=== PATIENT | female | born 1960 ===

== ENCOUNTER 2019-05-10 11:18 | Outpatient (CLI) | payer OTHER | END 2019-05-10 12:00 | disposition home or self-care (01) | LOC: WOUND MED 11:18 | DX: E10.622 Type 1 diabetes mellitus with other skin ulcer (principal); N61.1 Abscess of the breast and nipple | CPT/HCPCS: 11042; A4554; A4930; A6216; A6219; G0463 ==

== ENCOUNTER 2019-05-13 08:53 | Outpatient (CLI) | payer OTHER | END 2019-05-13 09:00 | disposition home or self-care (01) | LOC: MAMO-SONO 08:53 | DX: N63.10 Unspecified lump in the right breast, unspecified quadrant (principal); N63.20 Unspecified lump in the left breast, unspecified quadrant; Z12.31 Encounter for screening mammogram for malignant neoplasm of breast; Z87.898 Personal history of other specified conditions ==

== ENCOUNTER 2019-05-17 08:59 | Outpatient (CLI) | payer OTHER | END 2019-05-17 09:30 | disposition home or self-care (01) | LOC: WOUND MED 08:59 | DX: E10.622 Type 1 diabetes mellitus with other skin ulcer (principal); N61.1 Abscess of the breast and nipple | CPT/HCPCS: 11042; A4554; A4930; A6216; A6219 ==

== ENCOUNTER 2019-05-27 07:27 | Outpatient (CLI) | payer OTHER | END 2019-05-27 08:30 | disposition home or self-care (01) | LOC: WOUND MED 07:27 | DX: E10.622 Type 1 diabetes mellitus with other skin ulcer (principal); N61.1 Abscess of the breast and nipple | CPT/HCPCS: 11042; A4554; A4930; A6216; A6219 ==

== ENCOUNTER 2019-05-30 07:36 | Outpatient (CLI) | payer OTHER | END 2019-05-30 08:30 | disposition home or self-care (01) | LOC: WOUND MED 07:36 | DX: E10.622 Type 1 diabetes mellitus with other skin ulcer (principal); N61.1 Abscess of the breast and nipple | CPT/HCPCS: 97602; A4554; A4930; A6216; A6219 ==

== ENCOUNTER 2019-06-06 08:53 | Outpatient (CLI) | payer OTHER | END 2019-06-06 09:00 | disposition home or self-care (01) | LOC: WOUND MED 08:53 | DX: E10.622 Type 1 diabetes mellitus with other skin ulcer (principal); N61.1 Abscess of the breast and nipple | CPT/HCPCS: 11042; 11045; A4554; A4930; A6216; A6219 ==

== ENCOUNTER 2019-06-06 11:14 | Outpatient (CLI) | payer OTHER | END 2019-06-06 11:19 | disposition home or self-care (01) | LOC: SONOGRAMA 11:14 | DX: N63.10 Unspecified lump in the right breast, unspecified quadrant (principal); N63.20 Unspecified lump in the left breast, unspecified quadrant ==

== ENCOUNTER 2019-06-10 08:33 | Outpatient (CLI) | payer OTHER | END 2019-06-10 10:10 | disposition home or self-care (01) | LOC: WOUND MED 08:33 | DX: E10.622 Type 1 diabetes mellitus with other skin ulcer (principal); N61.1 Abscess of the breast and nipple | CPT/HCPCS: 97602; A4554; A4930; A6212; A6216; A6219 ==

== ENCOUNTER 2019-06-13 07:08 | Outpatient (CLI) | payer OTHER | END 2019-06-13 12:40 | disposition home or self-care (01) | LOC: WOUND MED 07:08 | DX: E10.622 Type 1 diabetes mellitus with other skin ulcer (principal); N61.1 Abscess of the breast and nipple | CPT/HCPCS: 11042; 11045; A4554; A4930; A6216; A6219 ==

== ENCOUNTER 2019-06-17 07:32 | Outpatient (CLI) | payer OTHER | END 2019-06-17 09:00 | disposition home or self-care (01) | LOC: WOUND MED 07:32 | DX: E10.622 Type 1 diabetes mellitus with other skin ulcer (principal); N61.1 Abscess of the breast and nipple | CPT/HCPCS: 97602; A4554; A4930; A6212; A6216; A6219 ==

== ENCOUNTER 2019-06-20 10:36 | Outpatient (CLI) | payer OTHER | END 2019-06-20 11:30 | disposition home or self-care (01) | LOC: WOUND MED 10:36 | DX: E10.622 Type 1 diabetes mellitus with other skin ulcer (principal); N61.1 Abscess of the breast and nipple | CPT/HCPCS: 11042; 11045; A4554; A4930; A6216; A6219 ==

== ENCOUNTER 2019-06-24 07:17 | Outpatient (CLI) | payer OTHER | END 2019-06-24 08:00 | disposition home or self-care (01) | LOC: WOUND MED 07:17 | DX: E10.622 Type 1 diabetes mellitus with other skin ulcer (principal); N61.1 Abscess of the breast and nipple | CPT/HCPCS: 97602; A4554; A4930; A6212; A6216; A6219 ==

== ENCOUNTER 2019-06-27 08:30 | Outpatient (CLI) | payer OTHER | END 2019-06-27 09:00 | disposition home or self-care (01) | LOC: WOUND MED 08:30 | DX: E10.622 Type 1 diabetes mellitus with other skin ulcer (principal); N61.1 Abscess of the breast and nipple | CPT/HCPCS: 11042; 11045 ×2; A4554; A4930; A6196; A6212; A6216 ==

== ENCOUNTER 2019-07-01 15:20 | Outpatient (CLI) | payer OTHER | END 2019-07-01 16:00 | disposition home or self-care (01) | LOC: WOUND MED 15:20 | DX: E10.622 Type 1 diabetes mellitus with other skin ulcer (principal); N61.1 Abscess of the breast and nipple | CPT/HCPCS: 97602; A4554; A4930; A6196; A6216; A6220 ==

== ENCOUNTER 2019-07-04 07:28 | Outpatient (CLI) | payer OTHER | END 2019-07-04 08:45 | disposition home or self-care (01) | LOC: WOUND MED 07:28 | DX: E10.622 Type 1 diabetes mellitus with other skin ulcer (principal); N61.1 Abscess of the breast and nipple | CPT/HCPCS: 11042; 11045 ×2; A4554; A4930; A6196; A6216; A6219 ==

== ENCOUNTER 2019-07-08 07:27 | Outpatient (CLI) | payer OTHER | END 2019-07-08 08:30 | disposition home or self-care (01) | LOC: WOUND MED 07:27 | DX: E10.622 Type 1 diabetes mellitus with other skin ulcer (principal); N61.1 Abscess of the breast and nipple | CPT/HCPCS: 97602; A4554; A4930; A6196; A6216; A6219 ==

== ENCOUNTER 2019-07-15 07:42 | Outpatient (CLI) | payer OTHER | END 2019-07-15 10:00 | disposition home or self-care (01) | LOC: WOUND MED 07:42 | DX: E10.622 Type 1 diabetes mellitus with other skin ulcer (principal); N61.1 Abscess of the breast and nipple | CPT/HCPCS: 11042; 11045; A4554; A4930; A6212; A6216; A6219 ==

== ENCOUNTER 2019-07-22 08:36 | Outpatient (CLI) | payer OTHER | END 2019-07-22 10:30 | disposition home or self-care (01) | LOC: WOUND MED 08:36 | DX: E10.622 Type 1 diabetes mellitus with other skin ulcer (principal); N61.1 Abscess of the breast and nipple | CPT/HCPCS: 11042; 11045; A4554; A4930; A6216; A6219 ==

== ENCOUNTER 2019-07-25 10:25 | Outpatient (CLI) | payer OTHER | END 2019-07-25 11:15 | disposition home or self-care (01) | LOC: WOUND MED 10:25 | DX: E10.622 Type 1 diabetes mellitus with other skin ulcer (principal); N61.1 Abscess of the breast and nipple | CPT/HCPCS: 97602; A4554; A4930; A6196; A6216; A6219; A6220 ==

== ENCOUNTER 2019-07-29 07:52 | Outpatient (CLI) | payer OTHER | END 2019-07-29 08:30 | disposition home or self-care (01) | LOC: WOUND MED 07:52 | DX: E10.622 Type 1 diabetes mellitus with other skin ulcer (principal); N61.1 Abscess of the breast and nipple | CPT/HCPCS: 11042; 11045; A4554; A4930; A6212; A6216; A6219; A6242 ==

== ENCOUNTER 2019-08-01 08:00 | Outpatient (CLI) | payer OTHER | END 2019-08-01 09:46 | disposition home or self-care (01) | LOC: WOUND MED 08:00 | DX: E10.622 Type 1 diabetes mellitus with other skin ulcer (principal); N61.1 Abscess of the breast and nipple | CPT/HCPCS: 97602; A4554; A4930; A6212; A6216; A6242 ==

== ENCOUNTER 2019-08-05 07:30 | Outpatient (CLI) | payer OTHER | END 2019-08-05 10:00 | disposition home or self-care (01) | LOC: WOUND MED 07:30 | DX: E10.622 Type 1 diabetes mellitus with other skin ulcer (principal); N61.1 Abscess of the breast and nipple | CPT/HCPCS: G0463; A4554; A4930; A6212; A6216 ==

== ENCOUNTER 2019-08-08 07:57 | Outpatient (CLI) | payer OTHER | END 2019-08-08 08:30 | disposition home or self-care (01) | LOC: WOUND MED 07:57 | DX: E10.622 Type 1 diabetes mellitus with other skin ulcer (principal); N61.1 Abscess of the breast and nipple | CPT/HCPCS: G0463; A4554; A4930; A6212; A6216 ==

== ENCOUNTER 2019-08-12 08:05 | Outpatient (CLI) | payer OTHER | END 2019-08-12 09:22 | disposition home or self-care (01) | LOC: WOUND MED 08:05 | DX: E10.622 Type 1 diabetes mellitus with other skin ulcer (principal); N61.1 Abscess of the breast and nipple | CPT/HCPCS: 11042; 11045; A4554; A4930; A6212; A6216; A6220 ==

== ENCOUNTER 2019-08-15 09:41 | Outpatient (CLI) | payer OTHER | END 2019-08-15 10:35 | disposition home or self-care (01) | LOC: WOUND MED 09:41 | DX: E10.622 Type 1 diabetes mellitus with other skin ulcer (principal); N61.1 Abscess of the breast and nipple | CPT/HCPCS: 97602; A4554; A4930; A6212; A6216; A6220 ==

== ENCOUNTER 2019-08-18 08:01 | Outpatient (CLI) | payer OTHER | END 2019-08-18 11:30 | disposition home or self-care (01) | LOC: WOUND MED 08:01 | DX: E10.622 Type 1 diabetes mellitus with other skin ulcer (principal); N61.1 Abscess of the breast and nipple | CPT/HCPCS: 11042; 11045; A4554; A4930; A6196 ×2; A6212; A6216 ==

== ENCOUNTER 2019-08-22 07:35 | Outpatient (CLI) | payer OTHER | END 2019-08-22 08:33 | disposition home or self-care (01) | LOC: WOUND MED 07:35 | DX: E10.622 Type 1 diabetes mellitus with other skin ulcer (principal); N61.1 Abscess of the breast and nipple | CPT/HCPCS: 97602; A4554; A4930; A6196; A6216 ==

== ENCOUNTER 2019-08-26 07:52 | Outpatient (CLI) | payer OTHER | END 2019-08-26 09:00 | disposition home or self-care (01) | LOC: WOUND MED 07:52 | DX: E10.622 Type 1 diabetes mellitus with other skin ulcer (principal); N61.1 Abscess of the breast and nipple | CPT/HCPCS: 11042; 11045; A4554; A4930; A6196; A6216 ==

== ENCOUNTER 2019-08-29 10:14 | Outpatient (CLI) | payer OTHER | END 2019-08-29 11:33 | disposition home or self-care (01) | LOC: WOUND MED 10:14 | DX: E10.622 Type 1 diabetes mellitus with other skin ulcer (principal); N61.1 Abscess of the breast and nipple | CPT/HCPCS: 97602; A4554; A4930; A6196; A6216; A6219; A6220 ==

== ENCOUNTER 2019-08-31 13:07 | Outpatient (CLI) | payer OTHER | END 2019-08-31 14:00 | disposition home or self-care (01) | LOC: WOUND MED 13:07 | DX: E10.622 Type 1 diabetes mellitus with other skin ulcer (principal); N61.1 Abscess of the breast and nipple | CPT/HCPCS: 97602; A4554; A4930; A6216; A6219; A6220 ==

== ENCOUNTER 2019-09-02 07:12 | Outpatient (CLI) | payer OTHER | END 2019-09-02 13:55 | disposition home or self-care (01) | LOC: WOUND MED 07:12 | DX: E10.622 Type 1 diabetes mellitus with other skin ulcer (principal); N61.1 Abscess of the breast and nipple | CPT/HCPCS: 11042; 11045; A4554; A4930; A6196; A6216; A6219 ==

== ENCOUNTER 2019-09-05 15:28 | Outpatient (CLI) | payer OTHER | END 2019-09-05 16:00 | disposition home or self-care (01) | LOC: WOUND MED 15:28 | DX: E10.622 Type 1 diabetes mellitus with other skin ulcer (principal); N61.1 Abscess of the breast and nipple | CPT/HCPCS: 97602; A4554; A4930; A6216; A6219 ×2; A6220 ==

== ENCOUNTER 2019-09-09 08:11 | Outpatient (CLI) | payer OTHER | END 2019-09-09 09:22 | disposition home or self-care (01) | LOC: WOUND MED 08:11 | DX: E10.622 Type 1 diabetes mellitus with other skin ulcer (principal); N61.1 Abscess of the breast and nipple | CPT/HCPCS: 11042; 11045; A4554; A4930; A6196; A6216; A6219; A6220 ==

== ENCOUNTER 2019-09-12 07:36 | Outpatient (CLI) | payer OTHER | END 2019-09-12 09:25 | disposition home or self-care (01) | LOC: WOUND MED 07:36 | DX: E10.622 Type 1 diabetes mellitus with other skin ulcer (principal); N61.1 Abscess of the breast and nipple | CPT/HCPCS: 97602; A4554; A4930; A6196; A6216; A6219; A6220 ==

== ENCOUNTER 2019-09-16 08:54 | Outpatient (CLI) | payer OTHER | END 2019-09-16 09:30 | disposition home or self-care (01) | LOC: WOUND MED 08:54 | DX: E10.622 Type 1 diabetes mellitus with other skin ulcer (principal); N61.1 Abscess of the breast and nipple | CPT/HCPCS: 11042; 11045; A4554; A4930; A6196; A6216 ==

== ENCOUNTER 2019-09-19 07:21 | Outpatient (CLI) | payer OTHER | END 2019-09-19 08:00 | disposition home or self-care (01) | LOC: WOUND MED 07:21 | DX: E10.622 Type 1 diabetes mellitus with other skin ulcer (principal); N61.1 Abscess of the breast and nipple | CPT/HCPCS: 97602; A4554; A4930; A6216; A6219; A6220 ==

== ENCOUNTER 2019-09-30 10:00 | Outpatient (CLI) | payer OTHER | END 2019-09-30 11:09 | disposition home or self-care (01) | LOC: WOUND MED 10:00 | DX: E10.622 Type 1 diabetes mellitus with other skin ulcer (principal); N61.1 Abscess of the breast and nipple | CPT/HCPCS: 11042; 11045; A4554; A4930; A6216; A6219; A6220 ==

== ENCOUNTER 2019-10-03 08:28 | Outpatient (CLI) | payer OTHER | END 2019-10-03 09:45 | disposition home or self-care (01) | LOC: WOUND MED 08:28 | DX: E10.622 Type 1 diabetes mellitus with other skin ulcer (principal); N61.1 Abscess of the breast and nipple | CPT/HCPCS: 97602; A4554; A4930; A6216; A6219 ==

== ENCOUNTER 2019-10-07 07:49 | Outpatient (CLI) | payer OTHER | END 2019-10-07 09:00 | disposition home or self-care (01) | LOC: WOUND MED 07:49 | DX: E10.622 Type 1 diabetes mellitus with other skin ulcer (principal); N61.1 Abscess of the breast and nipple | CPT/HCPCS: 11042; 11045 ×2; A4554; A4930; A6196; A6216 ==

== ENCOUNTER 2019-10-12 07:16 | Outpatient (CLI) | payer OTHER | END 2019-10-12 08:00 | disposition home or self-care (01) | LOC: WOUND MED 07:16 | DX: E10.622 Type 1 diabetes mellitus with other skin ulcer (principal); N61.1 Abscess of the breast and nipple | CPT/HCPCS: 97602; A4554; A4930; A6216; A6219; A6220 ==

== ENCOUNTER 2019-10-17 07:34 | Outpatient (CLI) | payer OTHER | END 2019-10-17 08:42 | disposition home or self-care (01) | LOC: WOUND MED 07:34 | DX: E10.622 Type 1 diabetes mellitus with other skin ulcer (principal); N61.1 Abscess of the breast and nipple | CPT/HCPCS: 11042; 11045; A4554; A4930; A6216; A6219 ==

== ENCOUNTER 2019-10-20 07:36 | Outpatient (CLI) | payer OTHER | END 2019-10-20 08:47 | disposition home or self-care (01) | LOC: WOUND MED 07:36 | DX: E10.622 Type 1 diabetes mellitus with other skin ulcer (principal); N61.1 Abscess of the breast and nipple | CPT/HCPCS: 97602; A4554; A4930; A6216; A6219 ==

== ENCOUNTER 2019-10-24 07:44 | Outpatient (CLI) | payer OTHER | END 2019-10-24 08:50 | disposition home or self-care (01) | LOC: WOUND MED 07:44 | DX: E10.622 Type 1 diabetes mellitus with other skin ulcer (principal); N61.1 Abscess of the breast and nipple | CPT/HCPCS: 11042; 11045 ×2; A4554; A4930; A6216 ==

== ENCOUNTER 2019-10-28 07:33 | Outpatient (CLI) | payer OTHER | END 2019-10-28 08:44 | disposition home or self-care (01) | LOC: WOUND CARE 07:33 → WOUND MED 07:33 → WOUND CARE 08:44 | DX: E10.622 Type 1 diabetes mellitus with other skin ulcer (principal); N61.1 Abscess of the breast and nipple | CPT/HCPCS: 97602; A4554; A4930; A6216; A6219 ==

== ENCOUNTER 2019-10-31 07:25 | Outpatient (CLI) | payer OTHER | END 2019-10-31 08:30 | disposition home or self-care (01) | LOC: WOUND MED 07:25 | DX: E10.622 Type 1 diabetes mellitus with other skin ulcer (principal); N61.1 Abscess of the breast and nipple | CPT/HCPCS: 11042; A4554; A4930; A6216; A6219 ==

== ENCOUNTER 2019-11-04 07:37 | Outpatient (CLI) | payer OTHER | END 2019-11-04 08:30 | disposition home or self-care (01) | LOC: WOUND MED 07:37 | DX: E10.622 Type 1 diabetes mellitus with other skin ulcer (principal); N61.1 Abscess of the breast and nipple | CPT/HCPCS: 97602; A4554; A4930; A6216; A6219 ==

== ENCOUNTER 2019-11-07 07:57 | Outpatient (CLI) | payer OTHER | END 2019-11-07 08:45 | disposition home or self-care (01) | LOC: WOUND MED 07:57 | DX: E10.622 Type 1 diabetes mellitus with other skin ulcer (principal); N61.1 Abscess of the breast and nipple | CPT/HCPCS: 11042; A4554; A4930; A6216; A6220 ==

== ENCOUNTER 2019-11-11 07:20 | Outpatient (CLI) | payer OTHER | END 2019-11-11 08:30 | disposition home or self-care (01) | LOC: WOUND MED 07:20 | DX: E10.622 Type 1 diabetes mellitus with other skin ulcer (principal); N61.1 Abscess of the breast and nipple | CPT/HCPCS: 97602; A4554; A4930; A6216 ==

== ENCOUNTER 2019-11-14 07:32 | Outpatient (CLI) | payer OTHER | END 2019-11-14 08:45 | disposition home or self-care (01) | LOC: WOUND MED 07:32 | DX: E10.622 Type 1 diabetes mellitus with other skin ulcer (principal); N61.1 Abscess of the breast and nipple | CPT/HCPCS: 11042; A4554; A4930; A6216; A6219 ==

== ENCOUNTER 2019-11-18 07:25 | Outpatient (CLI) | payer OTHER | END 2019-11-18 08:33 | disposition home or self-care (01) | LOC: WOUND MED 07:25 | DX: E10.622 Type 1 diabetes mellitus with other skin ulcer (principal); N61.1 Abscess of the breast and nipple | CPT/HCPCS: 97602; A4554; A4930; A6216; A6219 ==

== ENCOUNTER 2019-11-22 07:37 | Outpatient (CLI) | payer OTHER | END 2019-11-22 08:45 | disposition home or self-care (01) | LOC: WOUND MED 07:37 | DX: E10.622 Type 1 diabetes mellitus with other skin ulcer (principal); N61.1 Abscess of the breast and nipple | CPT/HCPCS: 11042; A4554; A4930; A6216; A6219 ==

== ENCOUNTER 2019-11-25 07:20 | Outpatient (CLI) | payer OTHER | END 2019-11-25 09:00 | disposition home or self-care (01) | LOC: WOUND MED 07:20 | DX: E10.622 Type 1 diabetes mellitus with other skin ulcer (principal); N61.1 Abscess of the breast and nipple | CPT/HCPCS: 97602; A4554; A4930; A6021; A6216; A6219 ==

== ENCOUNTER 2019-11-29 07:21 | Outpatient (CLI) | payer OTHER | END 2019-11-30 08:25 | disposition home or self-care (01) | LOC: WOUND MED 07:21 | PROVIDERS: ATTEND Specialist | DX: E10.622 Type 1 diabetes mellitus with other skin ulcer (principal); N61.1 Abscess of the breast and nipple | CPT/HCPCS: 11042; 11045; A4554; A4930; A6216; A6219; A6220 ==

== ENCOUNTER 2019-12-02 07:23 | Outpatient (CLI) | payer OTHER | END 2019-12-02 08:30 | disposition home or self-care (01) | LOC: WOUND MED 07:23 | PROVIDERS: ATTEND Specialist | DX: E10.621 Type 1 diabetes mellitus with foot ulcer (principal); N61.1 Abscess of the breast and nipple | CPT/HCPCS: 97602; A4554; A4930; A6216; A6219; A6220 ==

== ENCOUNTER 2019-12-06 07:18 | Outpatient (CLI) | payer OTHER | END 2019-12-06 08:55 | disposition home or self-care (01) | LOC: WOUND MED 07:18 | PROVIDERS: ATTEND Specialist | DX: E10.622 Type 1 diabetes mellitus with other skin ulcer (principal); N61.1 Abscess of the breast and nipple | CPT/HCPCS: 11042; A4554; A4930; A6216; A6219 ==

== ENCOUNTER 2019-12-09 07:45 | Outpatient (CLI) | payer OTHER | END 2019-12-09 10:00 | disposition home or self-care (01) | LOC: WOUND MED 07:45 | PROVIDERS: ATTEND Specialist | DX: E10.622 Type 1 diabetes mellitus with other skin ulcer (principal); N61.1 Abscess of the breast and nipple | CPT/HCPCS: 97602; A4554; A4930; A6216; A6219; A6220 ==

== ENCOUNTER 2020-01-31 07:48 | Outpatient (CLI) | payer OTHER | END 2020-01-31 10:00 | disposition home or self-care (01) | LOC: WOUND MED 07:48 | PROVIDERS: ATTEND Specialist | DX: E10.622 Type 1 diabetes mellitus with other skin ulcer (principal); N61.1 Abscess of the breast and nipple | CPT/HCPCS: 11042; G0463; A4554; A4930; A6216; A6220 ==

== ENCOUNTER 2020-02-03 08:30 | Outpatient (CLI) | payer OTHER | END 2020-02-03 09:00 | disposition home or self-care (01) | LOC: WOUND MED 08:30 | PROVIDERS: ATTEND Specialist | DX: E10.622 Type 1 diabetes mellitus with other skin ulcer (principal); N61.1 Abscess of the breast and nipple | CPT/HCPCS: 97602; A4554; A4930; A6216; A6219 ==

== ENCOUNTER 2020-02-07 08:22 | Outpatient (CLI) | payer OTHER | END 2020-02-07 09:00 | disposition home or self-care (01) | LOC: WOUND MED 08:22 | PROVIDERS: ATTEND Specialist | DX: E10.622 Type 1 diabetes mellitus with other skin ulcer (principal); N61.1 Abscess of the breast and nipple; R60.0 Localized edema | CPT/HCPCS: 11042; A4554; A4930; A6196; A6216; A6219 ==

== ENCOUNTER 2020-02-10 08:05 | Outpatient (CLI) | payer OTHER | END 2020-02-10 09:00 | disposition home or self-care (01) | LOC: WOUND MED 08:05 | PROVIDERS: ATTEND Specialist | DX: E10.622 Type 1 diabetes mellitus with other skin ulcer (principal); N61.1 Abscess of the breast and nipple; R60.0 Localized edema | CPT/HCPCS: 97602; A4554; A4930; A6196; A6216; A6219 ==

== ENCOUNTER 2020-02-14 07:59 | Outpatient (CLI) | payer OTHER | END 2020-02-14 08:37 | disposition home or self-care (01) | LOC: WOUND MED 07:59 | PROVIDERS: ATTEND Specialist | DX: E10.622 Type 1 diabetes mellitus with other skin ulcer (principal); N61.1 Abscess of the breast and nipple; R60.0 Localized edema | CPT/HCPCS: 11042; 11045; A4554; A4930; A6216; A6219 ==

== ENCOUNTER 2020-02-17 11:40 | Outpatient (CLI) | payer OTHER | END 2020-02-17 12:22 | disposition home or self-care (01) | LOC: WOUND MED 11:40 | PROVIDERS: ATTEND Specialist | DX: E10.622 Type 1 diabetes mellitus with other skin ulcer (principal); N61.1 Abscess of the breast and nipple; R60.0 Localized edema | CPT/HCPCS: 97602; A4554; A4930; A6196; A6216; A6219 ==

== ENCOUNTER 2020-02-21 08:02 | Outpatient (CLI) | payer OTHER | END 2020-02-21 10:00 | disposition home or self-care (01) | LOC: WOUND MED 08:02 | PROVIDERS: ATTEND Specialist | DX: E10.622 Type 1 diabetes mellitus with other skin ulcer (principal); N61.1 Abscess of the breast and nipple; R60.0 Localized edema | CPT/HCPCS: 11042; 11045; A4554; A4930; A6196; A6216; A6219 ==

== ENCOUNTER 2020-02-24 08:14 | Outpatient (CLI) | payer OTHER | END 2020-02-24 09:30 | disposition home or self-care (01) | LOC: WOUND MED 08:14 | PROVIDERS: ATTEND Specialist | DX: E10.622 Type 1 diabetes mellitus with other skin ulcer (principal); N61.1 Abscess of the breast and nipple; R60.0 Localized edema | CPT/HCPCS: 97602; A4554; A4930; A6196; A6216 ==

== ENCOUNTER 2020-02-28 07:55 | Outpatient (CLI) | payer OTHER | END 2020-02-28 08:37 | disposition home or self-care (01) | LOC: WOUND MED 07:55 | PROVIDERS: ATTEND Specialist | DX: E10.622 Type 1 diabetes mellitus with other skin ulcer (principal); N61.1 Abscess of the breast and nipple; R60.0 Localized edema | CPT/HCPCS: G0463; A4554; A4930; A6216; A6219 ==

== ENCOUNTER 2020-03-02 07:50 | Outpatient (CLI) | payer OTHER | END 2020-03-02 08:30 | disposition home or self-care (01) | LOC: WOUND MED 07:50 | PROVIDERS: ATTEND Specialist | DX: E10.622 Type 1 diabetes mellitus with other skin ulcer (principal); N61.1 Abscess of the breast and nipple; R60.0 Localized edema | CPT/HCPCS: 97602; A4554; A4930; A6216; A6219 ==

== ENCOUNTER 2020-03-06 08:01 | Outpatient (CLI) | payer OTHER | END 2020-03-06 09:55 | disposition home or self-care (01) | LOC: WOUND MED 08:01 | PROVIDERS: ATTEND Specialist | DX: E10.622 Type 1 diabetes mellitus with other skin ulcer (principal); N61.1 Abscess of the breast and nipple; R60.0 Localized edema | CPT/HCPCS: 11042; 11045; A4554; A4930; A6196; A6216; A6220 ==

== ENCOUNTER 2020-03-09 07:21 | Outpatient (CLI) | payer OTHER | END 2020-03-09 08:00 | disposition home or self-care (01) | LOC: WOUND MED 07:21 | PROVIDERS: ATTEND Specialist | DX: E10.622 Type 1 diabetes mellitus with other skin ulcer (principal); N61.1 Abscess of the breast and nipple; R60.0 Localized edema | CPT/HCPCS: 97602; A4554; A4930; A6216; A6219; A6220 ==